=== PATIENT | male | born 1935 | race Caucasian/White ===

== ENCOUNTER 2018-09-27 16:23 | Emergency (ER) | payer MEDICARE ==
[~2018-09-27] VITALS: Ht 172.7 cm; Wt 78.0 kg
[~2018-09-27 16:23] MED LIST: ATEN50 PO; CEFP200 PO; CYCL10 PO; HYDACE5 PO; Keflex500 MG PO; LORA10 PO; Norco 5-325 Ta1 EACH PO; OXYC5 PO; RANI150 PO; SIMV10 PO; WARF2.5 PO; WARF5 PO
[2018-09-27 17:28] LABS: BASOPHILS ABSOLUTE AUTO 0.02 K/mm3 (0.00-0.23); BASOPHILS PERCENT AUTO 1 % (0-2); EOSINOPHILS ABSOLUTE AUTO 0.01 K/mm3 (0.00-0.68); EOSINOPHILS PERCENT AUTO 0 % (0-6); Hematocrit 43.6 % (37.0-53.0); Hemoglobin 14.1 g/dL (13.5-17.5); IMMATURE GRAN ABSOLUTE AUTO 0.01 K/mm3 (0.00-0.10); IMMATURE GRAN PERCENT AUTO 0 % (0-1); LYMPHOCYTES ABSOLUTE AUTO 0.62 K/mm3 (0.84-5.20); LYMPHOCYTES PERCENT AUTO 17 % (21-46); MONOCYTES ABSOLUTE AUTO 0.99 K/mm3 (0.16-1.47); MONOCYTES PERCENT AUTO 28 % (4-13); Mean Corpuscular HGB 30.1 pg (26.0-34.0); Mean Corpuscular HGB Conc 32.3 g/dL (31.5-36.5); Mean Corpuscular Volume 93 fL (80-100); Mean Platelet Volume 9.4 fL (9.1-12.4); NEUTROPHILS ABSOLUTE AUTO 1.92 K/mm3 (1.96-9.15); NEUTROPHILS PERCENT AUTO 54 % (41-73); Platelet Count 142 K/mm3 (150-400); RDW Standard Deviation 44.6 fL (35.1-46.3); Red Blood Cell Count 4.69 M/mm3 (4.30-5.90); White Blood Cell Count 3.57 K/mm3 (4.00-11.30)
[2018-09-27 17:35] LABS: International Normalized Ratio 1.68
[2018-09-27 17:55] LABS: Alanine Aminotransfer (ALT/SGP 27 U/L (12-78); Albumin, Blood 3.3 g/dL (3.4-5.0); Albumin/Globulin Ratio 0.8 (0.8-1.8); Alk Phos 85 U/L (50-136); Anion Gap 9 mmol/L (6-16); Aspartate Aminotrans (AST/SGOT 47 U/L (12-37); Bilirubin, Total 1.2 mg/dL (0.1-1.0); Blood Urea Nitrogen 17 mg/dL (8-24); Bun/Creatinine Ratio 22.2 (12.0-20.0); CO2, Blood 26 mmol/L (21-32); Calcium, Blood 8.8 mg/dL (8.5-10.1); Chloride, Blood 98 mmol/L (98-108); Creatinine, Blood 0.77 mg/dL (0.60-1.20); Glomerular Filtration Rate >60 (60-); Glucose, Blood 82 mg/dL (70-99); Potassium, Blood 3.8 mmol/L (3.5-5.5); Sodium, Blood 133 mmol/L (136-145); Total Protein, Blood 7.3 g/dL (6.4-8.2)
[2018-09-27 20:56] LABS: Source, Urine Clean Catch
[2018-09-27 21:00] LABS: Bilirubin, Urine Neg (Neg); Blood, Urine 1+ (Neg); Glucose Qualitative, Urine Neg (Neg); Ketones, Urine 1+ (Neg); Leukocyte Esterase, Urine 1+ (Neg); Nitrite, Urine Neg (Neg); Protein, Urine 1+ (Neg); Specific Gravity, Urine 1.025 (1.003-1.022); Urobilinogen, Urine NORM (Normal)
[2018-09-27 21:10] LABS: Appearance, Urine Clear (Clear); Color, Urine Yellow (P-Yellow)
[2018-09-27 21:11] LABS: Bacteria Not Seen /hpf; Red Blood Cells, Urine Rare /hpf (0-2); Squamous Epithelial Cells Not Seen /hpf (Few); White Blood Cells, Urine 0-2 /hpf (0-5)
[2018-09-27 22:04] LABS: Influenza B Negative (NEGATIVE)
[2018-09-27 22:27] LABS: Influenza A Positive (NEGATIVE)
== END 2018-09-27 23:13 | disposition home or self-care (01) ==
LOC: ER 16:23
PROVIDERS: Emergency Medicine
DX: J10.1 Influenza due to other identified influenza virus with other respiratory manifestations (principal); G93.40 Encephalopathy, unspecified; Z79.01 Long term (current) use of anticoagulants; Z79.899 Other long term (current) drug therapy; I10 Essential (primary) hypertension; I25.2 Old myocardial infarction; Z87.891 Personal history of nicotine dependence
CPT/HCPCS: 36415; 70450; 71046; 80053; 81001; 85025; 85610; 87086; 87804; 93005; 93010; 96360; 99284-25; J7030

== ENCOUNTER 2018-11-15 15:55 | Emergency (ER) | payer MEDICARE ==
[~2018-11-15] VITALS: Ht 180.3 cm; Wt 90.7 kg
[2018-11-15 16:45] LABS: BASOPHILS ABSOLUTE AUTO 0.04 K/mm3 (0.00-0.23); BASOPHILS PERCENT AUTO 1 % (0-2); EOSINOPHILS ABSOLUTE AUTO 0.23 K/mm3 (0.00-0.68); EOSINOPHILS PERCENT AUTO 5 % (0-6); Hematocrit 42.1 % (37.0-53.0); Hemoglobin 13.5 g/dL (13.5-17.5); IMMATURE GRAN ABSOLUTE AUTO 0.02 K/mm3 (0.00-0.10); IMMATURE GRAN PERCENT AUTO 1 % (0-1); LYMPHOCYTES ABSOLUTE AUTO 1.07 K/mm3 (0.84-5.20); LYMPHOCYTES PERCENT AUTO 24 % (21-46); MONOCYTES ABSOLUTE AUTO 0.43 K/mm3 (0.16-1.47); MONOCYTES PERCENT AUTO 10 % (4-13); Mean Corpuscular HGB 30.1 pg (26.0-34.0); Mean Corpuscular HGB Conc 32.1 g/dL (31.5-36.5); Mean Corpuscular Volume 94 fL (80-100); Mean Platelet Volume 9.4 fL (9.1-12.4); NEUTROPHILS ABSOLUTE AUTO 2.65 K/mm3 (1.96-9.15); NEUTROPHILS PERCENT AUTO 60 % (41-73); Platelet Count 157 K/mm3 (150-400); RDW Coefficient Variation 14.9 % (11.7-14.2); RDW Standard Deviation 51.3 fL (35.1-46.3); Red Blood Cell Count 4.49 M/mm3 (4.30-5.90); White Blood Cell Count 4.44 K/mm3 (4.00-11.30)
[2018-11-15 17:01] LABS: Prothrombin Time Results 39.9 Sec (9.7-11.5)
[2018-11-15 17:06] LABS: Alanine Aminotransfer (ALT/SGP 20 U/L (12-78); Albumin, Blood 3.2 g/dL (3.4-5.0); Albumin/Globulin Ratio 0.9 (0.8-1.8); Alk Phos 74 U/L (50-136); Anion Gap 4 mmol/L (6-16); Aspartate Aminotrans (AST/SGOT 24 U/L (12-37); Bilirubin, Total 0.7 mg/dL (0.1-1.0); Blood Urea Nitrogen 11 mg/dL (8-24); Bun/Creatinine Ratio 14.9 (12.0-20.0); CO2, Blood 27 mmol/L (21-32); Calcium, Blood 8.7 mg/dL (8.5-10.1); Chloride, Blood 110 mmol/L (98-108); Creatinine, Blood 0.74 mg/dL (0.60-1.20); Globulin, Blood 3.6 g/dL (2.2-4.0); Glomerular Filtration Rate >60 (60-); Glucose, Blood 90 mg/dL (70-99); Potassium, Blood 4.4 mmol/L (3.5-5.5); Sodium, Blood 141 mmol/L (136-145); Total Protein, Blood 6.8 g/dL (6.4-8.2)
[2018-11-15 17:07] LABS: International Normalized Ratio 4.3
== END 2018-11-15 19:43 | disposition home or self-care (01) ==
LOC: ER 15:55
PROVIDERS: Physician Assistant
DX: R79.1 Abnormal coagulation profile (principal); I25.2 Old myocardial infarction; I10 Essential (primary) hypertension; Z87.891 Personal history of nicotine dependence
CPT/HCPCS: 36415; 80053; 85025; 85610; 99283

== ENCOUNTER 2019-08-02 18:35 | Emergency (ER) | payer MEDICARE ==
[~2019-08-02] VITALS: Ht 177.8 cm; Wt 78.9 kg
[2019-08-02 19:01] LABS: BASOPHILS ABSOLUTE AUTO 0.04 K/mm3 (0.00-0.23); BASOPHILS PERCENT AUTO 1 % (0-2); EOSINOPHILS ABSOLUTE AUTO 0.32 K/mm3 (0.00-0.68); EOSINOPHILS PERCENT AUTO 7 % (0-6); Hematocrit 44.3 % (37.0-53.0); Hemoglobin 14.6 g/dL (13.5-17.5); IMMATURE GRAN ABSOLUTE AUTO 0.02 K/mm3 (0.00-0.10); IMMATURE GRAN PERCENT AUTO 0 % (0-1); LYMPHOCYTES ABSOLUTE AUTO 1.23 K/mm3 (0.84-5.20); LYMPHOCYTES PERCENT AUTO 26 % (21-46); MONOCYTES ABSOLUTE AUTO 0.56 K/mm3 (0.16-1.47); MONOCYTES PERCENT AUTO 12 % (4-13); Mean Corpuscular HGB 30.2 pg (26.0-34.0); Mean Corpuscular Volume 92 fL (80-100); Mean Platelet Volume 9.4 fL (9.1-12.4); NEUTROPHILS ABSOLUTE AUTO 2.56 K/mm3 (1.96-9.15); NEUTROPHILS PERCENT AUTO 54 % (41-73); Platelet Count 150 K/mm3 (150-400); RDW Coefficient Variation 13.2 % (11.7-14.2); RDW Standard Deviation 44.7 fL (35.1-46.3); Red Blood Cell Count 4.84 M/mm3 (4.30-5.90); White Blood Cell Count 4.73 K/mm3 (4.00-11.30)
[2019-08-02 19:18] LABS: Alanine Aminotransfer (ALT/SGP 22 U/L (12-78); Albumin, Blood 3.5 g/dL (3.4-5.0); Albumin/Globulin Ratio 1.1 (0.8-1.8); Alk Phos 66 U/L (50-136); Anion Gap 6 mmol/L (6-16); Aspartate Aminotrans (AST/SGOT 21 U/L (12-37); Bilirubin, Total 0.5 mg/dL (0.1-1.0); Blood Urea Nitrogen 14 mg/dL (8-24); Bun/Creatinine Ratio 17.4 (12.0-20.0); CO2, Blood 25 mmol/L (21-32); Calcium, Blood 8.8 mg/dL (8.5-10.1); Chloride, Blood 105 mmol/L (98-108); Globulin, Blood 3.3 g/dL (2.2-4.0); Glomerular Filtration Rate >60 (60-); Glucose, Blood 120 mg/dL (70-99); Potassium, Blood 4.1 mmol/L (3.5-5.5); Sodium, Blood 136 mmol/L (136-145); Total Protein, Blood 6.8 g/dL (6.4-8.2); Troponin I <0.015 ng/mL (0.000-0.040)
[2019-08-02 21:50] LABS: International Normalized Ratio 2.26; Prothrombin Time Results 23.1 Sec (9.7-11.5)
== END 2019-08-02 23:55 | disposition home or self-care (01) ==
LOC: ER 18:35
PROVIDERS: Emergency Medicine; Physician Assistant
DX: R07.9 Chest pain, unspecified (principal); R91.1 Solitary pulmonary nodule; D68.2 Hereditary deficiency of other clotting factors; I10 Essential (primary) hypertension; I25.2 Old myocardial infarction; Z86.711 Personal history of pulmonary embolism; Z79.01 Long term (current) use of anticoagulants; Z79.899 Other long term (current) drug therapy; Z87.891 Personal history of nicotine dependence
CPT/HCPCS: 36415; 71046; 71260; 80053; 84484; 85025; 85610; 85730; 93005; 93010; 99285-25; Q9967

== ENCOUNTER → 2020-01-02 | Outpatient (CLI) | payer MEDICARE | LOC: LAB SHORT 15:51 → LAB 15:51 | DX: R30.0 Dysuria (principal) | CPT/HCPCS: 87086 ==

== ENCOUNTER 2020-08-15 17:08 | Emergency (ER) | payer MEDICARE ==
[~2020-08-15] VITALS: Ht 177.8 cm; Wt 76.2 kg
[2020-08-15 18:25] LABS: BASOPHILS ABSOLUTE AUTO 0.06 K/mm3 (0.00-0.23); BASOPHILS PERCENT AUTO 1 % (0-2); EOSINOPHILS ABSOLUTE AUTO 0.35 K/mm3 (0.00-0.68); EOSINOPHILS PERCENT AUTO 5 % (0-6); Hemoglobin 13.7 g/dL (13.5-17.5); IMMATURE GRAN ABSOLUTE AUTO 0.02 K/mm3 (0.00-0.10); IMMATURE GRAN PERCENT AUTO 0 % (0-1); LYMPHOCYTES ABSOLUTE AUTO 1.04 K/mm3 (0.84-5.20); LYMPHOCYTES PERCENT AUTO 16 % (21-46); MONOCYTES ABSOLUTE AUTO 0.67 K/mm3 (0.16-1.47); MONOCYTES PERCENT AUTO 10 % (4-13); Mean Corpuscular HGB 29.5 pg (26.0-34.0); Mean Corpuscular HGB Conc 31.9 g/dL (31.5-36.5); Mean Corpuscular Volume 93 fL (80-100); Mean Platelet Volume 9.5 fL (9.1-12.4); NEUTROPHILS ABSOLUTE AUTO 4.32 K/mm3 (1.96-9.15); NEUTROPHILS PERCENT AUTO 67 % (41-73); Platelet Count 138 K/mm3 (150-400); RDW Coefficient Variation 13.8 % (11.7-14.2); RDW Standard Deviation 47.1 fL (35.1-46.3); Red Blood Cell Count 4.65 M/mm3 (4.30-5.90); White Blood Cell Count 6.46 K/mm3 (4.00-11.30)
[2020-08-15 18:37] LABS: International Normalized Ratio 2.25
[2020-08-15 18:38] LABS: Alanine Aminotransfer (ALT/SGP 18 U/L (12-78); Albumin/Globulin Ratio 0.9 (0.8-1.8); Alk Phos 83 U/L (50-136); Anion Gap 2 mmol/L (6-16); Aspartate Aminotrans (AST/SGOT 18 U/L (12-37); Blood Urea Nitrogen 15 mg/dL (8-24); Bun/Creatinine Ratio 21.6 (12.0-20.0); CO2, Blood 29 mmol/L (21-32); Calcium, Blood 8.7 mg/dL (8.5-10.1); Chloride, Blood 108 mmol/L (98-108); Creatinine, Blood 0.69 mg/dL (0.60-1.20); Globulin, Blood 3.4 g/dL (2.2-4.0); Glomerular Filtration Rate >60 (60-); Glucose, Blood 69 mg/dL (70-99); Potassium, Blood 4.4 mmol/L (3.5-5.5); Sodium, Blood 139 mmol/L (136-145); Total Protein, Blood 6.4 g/dL (6.4-8.2)
== END 2020-08-15 19:54 | disposition home or self-care (01) ==
LOC: ER 17:08
PROVIDERS: Physician Assistant
DX: S40.012A Contusion of left shoulder, initial encounter (principal); S60.212A Contusion of left wrist, initial encounter; I25.2 Old myocardial infarction; I10 Essential (primary) hypertension; Z79.01 Long term (current) use of anticoagulants; Z87.891 Personal history of nicotine dependence; W01.198A Fall on same level from slipping, tripping and stumbling with subsequent striking against other object, initial encounter
CPT/HCPCS: 36415; 70450; 73030; 73110; 80053; 85025; 85610; 85730; 99284-25

== ENCOUNTER 2021-03-19 17:13 | Emergency (ER) | payer MEDICARE ==
[~2021-03-19] VITALS: Ht 177.8 cm; Wt 78.0 kg
[2021-03-19 18:44] LABS: BASOPHILS ABSOLUTE AUTO 0.01 K/mm3 (0.00-0.23); BASOPHILS PERCENT AUTO 0 % (0-2); EOSINOPHILS ABSOLUTE AUTO 0.03 K/mm3 (0.00-0.68); EOSINOPHILS PERCENT AUTO 1 % (0-6); IMMATURE GRAN ABSOLUTE AUTO 0.02 K/mm3 (0.00-0.10); IMMATURE GRAN PERCENT AUTO 0 % (0-1); LYMPHOCYTES ABSOLUTE AUTO 0.64 K/mm3 (0.84-5.20); LYMPHOCYTES PERCENT AUTO 11 % (21-46); MONOCYTES ABSOLUTE AUTO 0.53 K/mm3 (0.16-1.47); MONOCYTES PERCENT AUTO 9 % (4-13); Mean Corpuscular HGB 30.1 pg (26.0-34.0); Mean Corpuscular HGB Conc 34.1 g/dL (31.5-36.5); Mean Corpuscular Volume 88 fL (80-100); Mean Platelet Volume 9.8 fL (9.1-12.4); NEUTROPHILS ABSOLUTE AUTO 4.52 K/mm3 (1.96-9.15); NEUTROPHILS PERCENT AUTO 79 % (41-73); Platelet Count 151 K/mm3 (150-400); RDW Coefficient Variation 13.5 % (11.7-14.2); Red Blood Cell Count 4.99 M/mm3 (4.30-5.90); White Blood Cell Count 5.75 K/mm3 (4.00-11.30)
[2021-03-19 19:10] LABS: Alanine Aminotransfer (ALT/SGP 83 U/L (12-78); Albumin/Globulin Ratio 0.8 (0.8-1.8); Alk Phos 110 U/L (50-136); Anion Gap 9 mmol/L (6-16); Aspartate Aminotrans (AST/SGOT 126 U/L (12-37); Bilirubin, Total 1.4 mg/dL (0.1-1.0); Blood Urea Nitrogen 13 mg/dL (8-24); Bun/Creatinine Ratio 19.1 (12.0-20.0); CO2, Blood 23 mmol/L (21-32); Calcium, Blood 8.5 mg/dL (8.5-10.1); Chloride, Blood 103 mmol/L (98-108); Creatinine, Blood 0.68 mg/dL (0.60-1.20); Globulin, Blood 3.8 g/dL (2.2-4.0); Glomerular Filtration Rate >60 (60-); Glucose, Blood 131 mg/dL (70-99); Prothrombin Time Results 66.2 Sec (9.7-11.5); Sodium, Blood 135 mmol/L (136-145); Total Protein, Blood 6.8 g/dL (6.4-8.2); Troponin I <0.015 ng/mL (0.000-0.040)
[2021-03-19 19:15] LABS: International Normalized Ratio 6.83
== END 2021-03-19 21:01 | disposition home or self-care (01) ==
LOC: ER 17:13
PROVIDERS: Physician Assistant
DX: I82.532 Chronic embolism and thrombosis of left popliteal vein (principal); I82.513 Chronic embolism and thrombosis of femoral vein, bilateral; U07.1 COVID-19; I10 Essential (primary) hypertension; I25.2 Old myocardial infarction; Z79.899 Other long term (current) drug therapy; Z79.01 Long term (current) use of anticoagulants; Z86.711 Personal history of pulmonary embolism; Z87.891 Personal history of nicotine dependence
CPT/HCPCS: 36415; 71045; 80053; 84484; 85025; 85610; 93005; 93010; 93970; 99284-25

== ENCOUNTER 2021-04-15 18:05 | Emergency (ER) | payer MEDICARE ==
[~2021-04-15] VITALS: Ht 172.7 cm; Wt 79.4 kg
[2021-04-15 18:48] LABS: BASOPHILS ABSOLUTE AUTO 0.04 K/mm3 (0.00-0.23); BASOPHILS PERCENT AUTO 1 % (0-2); EOSINOPHILS ABSOLUTE AUTO 0.21 K/mm3 (0.00-0.68); EOSINOPHILS PERCENT AUTO 4 % (0-6); Hematocrit 42.9 % (37.0-53.0); Hemoglobin 13.5 g/dL (13.5-17.5); IMMATURE GRAN ABSOLUTE AUTO 0.03 K/mm3 (0.00-0.10); IMMATURE GRAN PERCENT AUTO 1 % (0-1); LYMPHOCYTES ABSOLUTE AUTO 1.08 K/mm3 (0.84-5.20); LYMPHOCYTES PERCENT AUTO 18 % (21-46); MONOCYTES PERCENT AUTO 10 % (4-13); Mean Corpuscular HGB 29.3 pg (26.0-34.0); Mean Corpuscular HGB Conc 31.5 g/dL (31.5-36.5); Mean Corpuscular Volume 93 fL (80-100); Mean Platelet Volume 8.9 fL (9.1-12.4); NEUTROPHILS ABSOLUTE AUTO 3.91 K/mm3 (1.96-9.15); NEUTROPHILS PERCENT AUTO 67 % (41-73); Platelet Count 195 K/mm3 (150-400); RDW Coefficient Variation 15.3 % (11.7-14.2); RDW Standard Deviation 51.9 fL (35.1-46.3); White Blood Cell Count 5.87 K/mm3 (4.00-11.30)
[2021-04-15 19:14] LABS: Alanine Aminotransfer (ALT/SGP 20 U/L (12-78); Albumin, Blood 2.8 g/dL (3.4-5.0); Albumin/Globulin Ratio 0.7 (0.8-1.8); Alk Phos 81 U/L (50-136); Anion Gap 5 mmol/L (6-16); Aspartate Aminotrans (AST/SGOT 29 U/L (12-37); Blood Urea Nitrogen 12 mg/dL (8-24); Bun/Creatinine Ratio 15.4 (12.0-20.0); CO2, Blood 27 mmol/L (21-32); Calcium, Blood 9.1 mg/dL (8.5-10.1); Chloride, Blood 109 mmol/L (98-108); Creatinine, Blood 0.78 mg/dL (0.60-1.20); Ethanol (Alcohol), Blood, Med <3 mg/dL; Globulin, Blood 4.2 g/dL (2.2-4.0); Glomerular Filtration Rate >60 (60-); Glucose, Blood 116 mg/dL (70-99); Potassium, Blood 4.2 mmol/L (3.5-5.5); Salicylate <1.7 mg/dL (2.8-20.0); Sodium, Blood 141 mmol/L (136-145)
[2021-04-15] MEDS ORDERED: NEURONTIN300 MG PO (20:26)
[2021-04-15] MEDS ORDERED: JANTOVEN3 M2 PO (20:27)
[2021-04-15 20:52] LABS: Source, Urine Clean Catch
[2021-04-15 20:54] LABS: Appearance, Urine Clear (Clear); Bilirubin, Urine Neg (Neg); Blood, Urine 1+ (Neg); Color, Urine Yellow (P-Yellow); Glucose Qualitative, Urine Neg (Neg); Ketones, Urine Neg (Neg); Leukocyte Esterase, Urine 1+ (Neg); Nitrite, Urine Neg (Neg); Protein, Urine Neg (Neg); Urobilinogen, Urine NORM (Normal)
[2021-04-15 21:09] LABS: Bacteria Not Seen /hpf; Red Blood Cells, Urine 0-2 /hpf (0-2); Squamous Epithelial Cells Rare /hpf (Few); White Blood Cells, Urine 0-2 /hpf (0-5)
[2021-04-15 21:20] LABS: U Amphetamine Screen Not Detected; U Barbituate Screen Not Detected; U Benzodiazapine Screen Not Detected; U Buprenorphine Screen Not Detected; U Cannabinoids Screen Not Detected; U Cocaine Screen Not Detected; U Methadone Screen Not Detected; U Methamphetamine Screen Not Detected; U Opiates Screen Not Detected; U Oxycodone Screen Not Detected; U Phencyclidine Screen Not Detected; U Propoxyphene Screen Not Detected
[2021-04-15 21:25] LABS: International Normalized Ratio 3.39; Prothrombin Time Results 32.9 Sec (9.7-11.5)
== END 2021-04-15 22:13 | disposition home or self-care (01) ==
LOC: ER 18:05
PROVIDERS: Emergency Medicine; Physician Assistant
DX: R41.82 Altered mental status, unspecified (principal); I10 Essential (primary) hypertension; I25.2 Old myocardial infarction; Z79.01 Long term (current) use of anticoagulants; Z79.899 Other long term (current) drug therapy; Z86.711 Personal history of pulmonary embolism; Z87.891 Personal history of nicotine dependence
CPT/HCPCS: 36415; 70450; 80053; 81001; 85025; 85610; 93005; 93010; 99284-25; G0480

== ENCOUNTER 2021-04-16 17:13 | Emergency (ER) | payer MEDICARE ==
[~2021-04-16] VITALS: Ht 177.8 cm; Wt 81.7 kg
[~2021-04-16 17:13] MED LIST changes: +JANTOVEN3 M2 PO; +NEURONTIN300 MG PO
== END 2021-04-16 19:15 | disposition home or self-care (01) ==
LOC: ER 17:13
DX: Z00.8 Encounter for other general examination (principal); I10 Essential (primary) hypertension; I25.2 Old myocardial infarction; Z79.899 Other long term (current) drug therapy; Z79.01 Long term (current) use of anticoagulants; Z86.711 Personal history of pulmonary embolism; Z87.891 Personal history of nicotine dependence
CPT/HCPCS: 99284

== ENCOUNTER 2021-07-28 18:28 | Emergency (ER) | payer OTHER, MEDICARE ==
[~2021-07-28] VITALS: Ht 172.7 cm; Wt 78.0 kg
== END 2021-07-28 20:34 | disposition home or self-care (01) ==
LOC: ER 18:28
DX: S61.511A Laceration without foreign body of right wrist, initial encounter (principal); M25.561 Pain in right knee; I25.2 Old myocardial infarction; I10 Essential (primary) hypertension; Z79.01 Long term (current) use of anticoagulants; W22.8XXA Striking against or struck by other objects, initial encounter
CPT/HCPCS: 99282

== ENCOUNTER 2022-03-09 05:26 | Emergency (ER) | payer MEDICARE ==
[~2022-03-09] VITALS: Ht 177.8 cm; Wt 68.0 kg
[2022-03-09 07:32] LABS: BASOPHILS ABSOLUTE AUTO 0.02 K/mm3 (0.00-0.23); BASOPHILS PERCENT AUTO 0 % (0-2); EOSINOPHILS ABSOLUTE AUTO 0.32 K/mm3 (0.00-0.68); EOSINOPHILS PERCENT AUTO 7 % (0-6); Hematocrit 40.6 % (37.0-53.0); Hemoglobin 13.1 g/dL (13.5-17.5); IMMATURE GRAN ABSOLUTE AUTO 0.01 K/mm3 (0.00-0.10); IMMATURE GRAN PERCENT AUTO 0 % (0-1); LYMPHOCYTES ABSOLUTE AUTO 1.25 K/mm3 (0.84-5.20); LYMPHOCYTES PERCENT AUTO 28 % (21-46); MONOCYTES ABSOLUTE AUTO 0.54 K/mm3 (0.16-1.47); MONOCYTES PERCENT AUTO 12 % (4-13); Mean Corpuscular HGB 29.4 pg (26.0-34.0); Mean Corpuscular HGB Conc 32.3 g/dL (31.5-36.5); Mean Corpuscular Volume 91 fL (80-100); Mean Platelet Volume 9.3 fL (9.1-12.4); NEUTROPHILS ABSOLUTE AUTO 2.31 K/mm3 (1.96-9.15); NEUTROPHILS PERCENT AUTO 52 % (41-73); Platelet Count 137 K/mm3 (150-400); RDW Coefficient Variation 14.1 % (11.7-14.2); RDW Standard Deviation 47.5 fL (35.1-46.3); Red Blood Cell Count 4.45 M/mm3 (4.30-5.90); White Blood Cell Count 4.45 K/mm3 (4.00-11.30)
[2022-03-09 07:40] LABS: International Normalized Ratio 2.16; Prothrombin Time Results 21.6 Sec (9.7-11.5)
[2022-03-09 07:49] LABS: Albumin, Blood 2.9 g/dL (3.4-5.0); Albumin/Globulin Ratio 0.9 (0.8-1.8); Bilirubin, Total 0.5 mg/dL (0.1-1.0); Bun/Creatinine Ratio 19.5 (12.0-20.0); Calcium, Blood 8.7 mg/dL (8.5-10.1); Creatinine, Blood 0.82 mg/dL (0.60-1.20); Globulin, Blood 3.1 g/dL (2.2-4.0); Potassium, Blood 4.4 mmol/L (3.5-5.5)
[2022-03-09 08:51] LABS: Influenza A, PCR NEGATIVE (NEGATIVE); Influenza B, PCR NEGATIVE (NEGATIVE); Resp Syncytial Virus, PCR NEGATIVE (NEGATIVE); SARS-Cov-2 (COVID-19) PCR, MMC NEGATIVE (NEGATIVE)
== END 2022-03-09 08:45 ==
LOC: ER 05:26
PROVIDERS: Emergency Medicine
DX: S06.5X0A Traumatic subdural hemorrhage without loss of consciousness, initial encounter (principal); W06.XXXA Fall from bed, initial encounter; W20.8XXA Other cause of strike by thrown, projected or falling object, initial encounter; Z79.01 Long term (current) use of anticoagulants; Z20.822 Contact with and (suspected) exposure to COVID-19
CPT/HCPCS: 0241U; 36415; 70450; 80053; 85025; 85610; J3430; J7168

== ENCOUNTER 2022-06-13 15:55 | Inpatient (IN) | payer MEDICARE ==
[~2022-06-13] VITALS: Ht 177.8 cm; Wt 73.2 kg
[2022-06-13 17:14] LABS: BASOPHILS ABSOLUTE AUTO 0.03 K/mm3 (0.00-0.23); BASOPHILS PERCENT AUTO 1 % (0-2); EOSINOPHILS ABSOLUTE AUTO 0.08 K/mm3 (0.00-0.68); EOSINOPHILS PERCENT AUTO 1 % (0-6); Hematocrit 27.9 % (37.0-53.0); Hemoglobin 8.9 g/dL (13.5-17.5); IMMATURE GRAN ABSOLUTE AUTO 0.03 K/mm3 (0.00-0.10); IMMATURE GRAN PERCENT AUTO 1 % (0-1); LYMPHOCYTES ABSOLUTE AUTO 0.98 K/mm3 (0.84-5.20); LYMPHOCYTES PERCENT AUTO 17 % (21-46); MONOCYTES ABSOLUTE AUTO 0.47 K/mm3 (0.16-1.47); MONOCYTES PERCENT AUTO 8 % (4-13); Mean Corpuscular HGB 29.9 pg (26.0-34.0); Mean Corpuscular HGB Conc 31.9 g/dL (31.5-36.5); Mean Corpuscular Volume 94 fL (80-100); Mean Platelet Volume 9.1 fL (9.1-12.4); NEUTROPHILS ABSOLUTE AUTO 4.09 K/mm3 (1.96-9.15); NEUTROPHILS PERCENT AUTO 72 % (41-73); Platelet Count 305 K/mm3 (150-400); RDW Coefficient Variation 15.2 % (11.7-14.2); RDW Standard Deviation 50.4 fL (35.1-46.3); Red Blood Cell Count 2.98 M/mm3 (4.30-5.90); White Blood Cell Count 5.68 K/mm3 (4.00-11.30)
[2022-06-13 17:30] LABS: Albumin, Blood 2.7 g/dL (3.4-5.0); Albumin/Globulin Ratio 0.8 (0.8-1.8); Bilirubin, Total 0.6 mg/dL (0.1-1.0); Bun/Creatinine Ratio 22.5 (12.0-20.0); Calcium, Blood 8.4 mg/dL (8.5-10.1); Creatinine, Blood 0.71 mg/dL (0.60-1.20); Globulin, Blood 3.3 g/dL (2.2-4.0); Potassium, Blood 4.2 mmol/L (3.5-5.5)
[2022-06-13 17:40] LABS: Source, Urine Clean Catch
[2022-06-13 17:46] LABS: Bilirubin, Urine Neg (Neg); Blood, Urine 5+ (Neg); Glucose Qualitative, Urine Neg (Neg); Ketones, Urine 1+ (Neg); Nitrite, Urine Neg (Neg); Protein, Urine 4+ (Neg)
[2022-06-13 17:52] LABS: International Normalized Ratio 7.5
[2022-06-13 17:58] LABS: Appearance, Urine Cloudy (Clear); Color, Urine Brown (P-Yellow); Leukocyte Esterase, Urine 1+ (Neg); Urobilinogen, Urine 1+ (Normal)
[2022-06-13 18:03] LABS: Red Blood Cells, Urine TNTC /hpf (0-2)
[2022-06-13 18:06] LABS: Bacteria Few /hpf; Granular Casts 0-2 /lpf (0); Hyaline Casts 0-2 /lpf (0-2); Squamous Epithelial Cells Rare /hpf (Few)
[2022-06-13 19:25] LABS: Source, Urine Foley catheter
[2022-06-13 19:30] LABS: Bilirubin, Urine Neg (Neg); Blood, Urine 5+ (Neg); Glucose Qualitative, Urine Neg (Neg); Ketones, Urine 1+ (Neg); Leukocyte Esterase, Urine 1+ (Neg); Protein, Urine 4+ (Neg)
[2022-06-13 19:38] LABS: Appearance, Urine Cloudy (Clear); Color, Urine Brown (P-Yellow); Nitrite, Urine Pos (Neg); Urobilinogen, Urine 1+ (Normal)
[2022-06-13 19:48] LABS: Bacteria Many /hpf; Red Blood Cells, Urine TNTC /hpf (0-2); Renal Epithelial Few /hpf (0-Rare); Squamous Epithelial Cells Few /hpf (Few); White Blood Cells, Urine 0-2 /hpf (0-5)
[2022-06-13 22:27] LABS: Hematocrit 26.1 % (37.0-53.0); Hemoglobin 8.5 g/dL (13.5-17.5)
--- NOTE | 2022-06-13 22:34 | NUR ---
ADMIT NOTE 87 YR OLD MALE ADMITTED TO FLOOR FROM THE ED WITH DX OF ACUTE BLOOD LOSS ANEMIA. ED RN VOICED HAD BLADDER IRRIGATED HIM AND ALTHOUGH RETURNS WERE "A LOT OF BLOOD, BUT NO CLOTS" NOTED. HERNANDEZ IN PT WHEN HE CAME TO FLOOR. NOTE HEMATURIA. ALERT AND ORIENTED. CALL LIGHT IN REACH. RAILS UP X 3.
[2022-06-13] MEDS ORDERED: PEPCID40 MG PO (22:58)
[2022-06-13] MEDS ORDERED: BEVESPI AEROS10.7 G1 INH (22:59)
[2022-06-13] MEDS ORDERED: Ventolin/Prove6.7 GM INH (22:59)
[2022-06-13] MEDS ORDERED: Namenda5 MG PO (23:00)
[2022-06-13] MEDS ORDERED: OXYC5 PO (23:00)
[2022-06-13] MEDS ORDERED: QUETIAPINE FUMA25 MG PO (23:01)
--- NOTE | 2022-06-14 03:44 | NUR ---
FACULTY ADMINISTRATOR SUMMARY ADMITTED EARLIER IN THE SHIFT WITH DX OF ACUTE BLOOD LOSS ANEMIA AND HEMATURIA. ED REPORTED HAVING BLADDER IRRIGATED HIM BUT FOUND NO CLOTS. HERNANDEZ DRAINING HEMATURIA. MD ORDERED 2 UNITS OF FROZEN PLASMA. ONE UNIT HAS BEEN INFUSED, AND SECOND UNIT IS CURRENTLY INFUSING. VOICED HE FELT "BETTER", SMILING. HANDS WARMER TO TOUCH. VITAL SIGNS STABILIZING. LATEST VS: T 98.4, P 75, RESP 16, BP 109/71 AND O2 SATS 93% ON ROOM AIR. CALLED EARLIER AND NOTIFIED OF PT CONDITION AND OF RECEIVING PLASMA. SHE VOICED SHE WOULD COME IN IN THE MORNING. PT ORIENTED TO USE OF CALL LIGHT. CALL LIGHT IN REACH. RAILS UP X 3 FOR SAFETY. WILL CONTINUE TO MONITOR.
--- NOTE | 2022-06-14 04:16 | NUR ---
2 UNITS OF PLASMA INFUSED ORDERED, NO NOTED S/S ADVERSE REACTION. VSS. SMILING. CALL LIGHT IN REACH
[2022-06-14 05:13] LABS: Hematocrit 21.8 % (37.0-53.0); Hemoglobin 6.9 g/dL (13.5-17.5)
[2022-06-14 05:43] LABS: Albumin, Blood 2.5 g/dL (3.4-5.0); Albumin/Globulin Ratio 0.8 (0.8-1.8); Bilirubin, Total 0.6 mg/dL (0.1-1.0); Bun/Creatinine Ratio 24.7 (12.0-20.0); Calcium, Blood 8.1 mg/dL (8.5-10.1); Creatinine, Blood 0.73 mg/dL (0.60-1.20); Potassium, Blood 3.9 mmol/L (3.5-5.5); Total Protein, Blood 5.5 g/dL (6.4-8.2)
[2022-06-14 08:33] LABS: Hematocrit 23.7 % (37.0-53.0); Hemoglobin 7.7 g/dL (13.5-17.5)
--- NOTE | 2022-06-14 17:24 | NUR ---
DAYSHIFT SUMMARY Patient admitted for acute blood loss, hematuria noted in stover catheter bag. H/H MD leydi order 1 unit PRBCs to be transfused. Transfued blood, no s/sx of transfusion reaction observed. Vitals stable. Patient AOx2, at bedside to answer questions. H/H will be redrawn this evening. Will continue plan of care.
[2022-06-14 17:56] LABS: Hematocrit 24.9 % (37.0-53.0); Hemoglobin 8.1 g/dL (13.5-17.5)
--- NOTE | 2022-06-14 20:30 | NUR ---
PATIENT PRESENTS WITH A DIAGNOSIS OF A UTI. A&OX4 WITH TANGENTIAL SPEECH. PATIENT EFFECTIVELY COMMUNICATES NEEDS. CALL LIGHT WITHIN REACH. BED LOW AND LOCKED. COOPERATIVE WITH CARE AND PLEASANTLY INTERACTIVE WITH CARE STAFF. VSS. RR EVEN AND UNLABORED ON RA. APAP ADMINISTERED PER EMAR FOR A REPORTED HEADACHE AND DIFFUSE BACK PAIN. PATIENT CURRENTLY UP IN BEDSIDE CHAIR. PER DAYSHIFT REPORT, URINE REMAINS DOMINGA-COLORED IN CHARACTER. PATIENT ENCOURAGED TO DRINK H2O AND IS RESPONSIVE TO THIS. IV TO RIGHT WRIST IS PATENT AND WITHOUT SIGNS OF INFECTION. NO ACUTE CONCERNS AT THIS TIME. WILL CONTINUE TO CLOSELY MONITOR.
--- NOTE | 2022-06-14 20:40 | NUR ---
PATIENT PRESENTS WITH DIAGNOSIS OF HEMATUIRA. A&O TO SELF AND FAMILY. PATIENT EFFECITVELY COMMUNICATES NEEDS. CALL LIGHT WITHIN REACH. BED LOW AND LOCKED. VSS. RR EVEN AND UNLABORED ON RA. 1 UNIT OF BLOOD ADMINISTERED BY DAYSKAVITHA RN. IV TO LEFT FOREARM PATENT AND WITHOUT SIGNS OF INFECTION. HERNANDEZ CATHETER DRAINING BLOODY URINE. NO CLOTS NOTED. WILL CONTINUE TO CLOSELY MONITOR.
--- NOTE | 2022-06-15 03:46 | NUR ---
SHIFT SUMMARY THE PATIENT IS AN 87 YEAR-OLD MALE WITH A DIAGNOSIS OF GROSS HEMATURIA AND ACUTE BLOOD LOSS ANEMIA. A&O TO SELF ONLY. EFFECTIVELY COMMUNICATES NEEDS WITH ASSISTANCE. INCREASED ROUNDING RELATED TO INABILITY TO APPROPRIATELY UTILIZE CALL LIGHT. BED LOW AND LOCKED. CHAD VEST IN PLACE DUE TO MULTIPLE ATTEMPTS TO GET OUT OF BED WITHOUT ASSISTNACE. VSS. RR EVEN AND UNLABORED ON RA. PATIENT DENIES PAIN. HERNANDEZ CATHETER CONTINUES TO DRAIN HEMATURIA. NO ACUTE CHANGES THIS SHIFT. WILL CONTINUE TO CLOSELY MONITOR.
[2022-06-15 05:58] LABS: Hematocrit 26.5 % (37.0-53.0); Hemoglobin 8.4 g/dL (13.5-17.5); Mean Corpuscular HGB 29.3 pg (26.0-34.0); Mean Corpuscular HGB Conc 31.7 g/dL (31.5-36.5); Mean Corpuscular Volume 92 fL (80-100); Mean Platelet Volume 9.5 fL (9.1-12.4); Platelet Count 227 K/mm3 (150-400); RDW Coefficient Variation 17.1 % (11.7-14.2); RDW Standard Deviation 56.1 fL (35.1-46.3); Red Blood Cell Count 2.87 M/mm3 (4.30-5.90)
[2022-06-15 13:39] LABS: Hematocrit 29.9 % (37.0-53.0); Hemoglobin 9.4 g/dL (13.5-17.5)
[2022-06-15 13:43] LABS: Stool Occult Blood Guaiac 1 Pos (Neg)
--- NOTE | 2022-06-15 17:50 | NUR ---
SHIFT SUMMARY PLAN WAS TO D/C TODAY, BUT BLOOD NOTED IN STOOL AND GUAIAC AND H&H ORDERED. PTN WITH CHAD AT 0031 THIS AM FOR AGITATION, BUT D/C'D AT 1020 THERE HAD BEEN NO ISSUES. PTN RESTED QUIETLY, AND HAS BEEN BY HIS SIDE MOST OF THIS SHIFT WITH NO PROBLEMS. PTN IS SOMEWHAT CONFUSED, KNOWS AND BIRTHDAY, BUT NOT REAL SURE WHERE HE IS. DOES STATE THAT PTN TENDS TO GET CONFUSED AND MORE AGITATED IN THE EVENINGS, STATING THAT HE HAS "THE OWNERS." PTN HERNANDEZ DRAINING A RED-COLORED URINE TO GRAVITY. STOOL EARLIER THIS SHIFT WAS A DARK COFFEE-GROUND CONSISTENCY AND RUNNY WITH ODOR. CONTINUE TO MONITOR.
--- NOTE | 2022-06-15 19:50 | NUR ---
THE PATIENT IS AN 87 YEAR-OLD MALE WITH A DIAGNOSIS OF GROSS HEMATURIA AND ACUTE BLOOD LOSS ANEMIA. PATIENT STAY EXTENDED FOR ANOTHER NIGHT SECONDARY TO POSITIVE GUAIAC TEST AND CONTINUED HEMATURIA. A&OX TO SELF AND FAMILY. PATIENT EFFECITVELY COMMUNICATES NEEDS. INCREASED ROUNDING PERFORMED DUE TO INABILITY TO APPROPRIATELY USE CALL LIGHT. PATIENT FAMILY CURRENTLY AT BEDSIDE. PATIENT DENIES PAIN. VSS. HERNANDEZ CATHETER DRAINING HEMATURIA. NO ACUTE CONCERNS AT THIS TIME. BED LOW AND LOCKED. CALL LIGHT WITHIN REACH. WILL CONTINUE TO CLOSELY MONITOR.
[2022-06-15 20:11] LABS: Hematocrit 26.1 % (37.0-53.0); Hemoglobin 8.4 g/dL (13.5-17.5)
--- NOTE | 2022-06-16 03:14 | NUR ---
JAVA DEVELOPMENT MANAGER SUMMARY THE PATIENT IS AN 87 YEAR-OLD MALE WITH A DIAGNOSIS OF GROSS HEMATURIA AND ACUTE BLOOD LOSS ANEMIA. A&O TO SELF, PHYSICAL SURROUNDINGS, FAMILY, AND VAUGLY TO SITUATION. UNABLE TO STATE [place] AND/OR STATE. PATIENT EFFECTIVELY COMMUNICATES NEEDS. INCREASED ROUNDING PERFORMED DUE TO INABILITY TO APPROPRIATELY UTILIZE CALL LIGHT. PATIENT HAS DEMONSTRATED INTERMITTENT EPISODES OF RESTLESSNESS BUT IS REDIRECTABLE. HERNANDEZ CATHETER IS DRAINING HEMATURIA. POSITIVE GUAIAC TEST ON 06/15. VSS. IV TO LEFT FOREARM IS SALINE LOCKED. NO ACUTE CHANGES THIS SHIFT. WILL CONTINUE TO CLOSELY MONITOR.
[2022-06-16 05:55] LABS: Hematocrit 26.6 % (37.0-53.0); Hemoglobin 8.6 g/dL (13.5-17.5); Mean Corpuscular HGB 29.5 pg (26.0-34.0); Mean Corpuscular HGB Conc 32.3 g/dL (31.5-36.5); Mean Corpuscular Volume 91 fL (80-100); Mean Platelet Volume 9.6 fL (9.1-12.4); Platelet Count 231 K/mm3 (150-400); RDW Coefficient Variation 16.8 % (11.7-14.2); RDW Standard Deviation 53.7 fL (35.1-46.3); Red Blood Cell Count 2.92 M/mm3 (4.30-5.90); White Blood Cell Count 5.42 K/mm3 (4.00-11.30)
[2022-06-16 06:19] LABS: Bun/Creatinine Ratio 17.1 (12.0-20.0); Calcium, Blood 8.4 mg/dL (8.5-10.1); Creatinine, Blood 0.82 mg/dL (0.60-1.20); Potassium, Blood 3.9 mmol/L (3.5-5.5)
[2022-06-16] MEDS ORDERED: OMEP20ER PO (11:40)
--- NOTE | 2022-06-16 13:19 | NUR ---
SHIFT SUMMARY PTN SEEN BY DR DUBOSE THIS AM, ORDERS FOR D/C. URINE CLEARED AND IS YELLOW CLEAR TODAY, TO D/C HOME WITH HERNANDEZ, TO FOLLOW-UP WITH UROLOGY. PTN WITH SOME CONFUSION, BUT SEEMED BETTER TODAY. FAMILY REPORT THIS IS ONGOING, THAT SOME DAYS HE IS BETTER AND SOME DAYS WORSE. PTN OFF WARFARIN, AWAITING DIRECTION FROM PRIMARY CARE. APPT HAS BEEN MADE FOR TOMORROW WITH PRIMARY CARE. AND DAUGHTER PRESENT FOR MOST OF STAY AND HERE TODAY FOR D/C. PTN TRANSPORTED BY BY [facility] TO EXIT.
== END 2022-06-16 13:14 | disposition home or self-care (01) | DRG 812 ==
LOC: ER 15:55 → MEDS 15:56 → ENPENDDIS 06-15 14:33 → MEDS 06-16 13:14
PROVIDERS: Emergency Medicine; Family Medicine; Internal Medicine; Physician Assistant; ADMIT Internal Medicine
PROC: 30233L1 Transfusion of Nonautologous Fresh Plasma into Peripheral Vein, Percutaneous Approach (ICD-10-PCS; principal; 2022-06-13)
PROC: 30233K1 Transfusion of Nonautologous Frozen Plasma into Peripheral Vein, Percutaneous Approach (ICD-10-PCS; 2022-06-13)
PROC: 30233L1 Transfusion of Nonautologous Fresh Plasma into Peripheral Vein, Percutaneous Approach (ICD-10-PCS; 2022-06-14)
PROC: 30233K1 Transfusion of Nonautologous Frozen Plasma into Peripheral Vein, Percutaneous Approach (ICD-10-PCS; 2022-06-14)
DX: D62 Acute posthemorrhagic anemia (principal); E72.11 Homocystinuria; F05 Delirium due to known physiological condition; D68.51 Activated protein C resistance; K92.1 Melena; R31.0 Gross hematuria; F03.90 Unspecified dementia, unspecified severity, without behavioral disturbance, psychotic disturbance, mood disturbance, and anxiety; M17.0 Bilateral primary osteoarthritis of knee; I25.2 Old myocardial infarction; Z86.711 Personal history of pulmonary embolism; Z87.891 Personal history of nicotine dependence; Z79.01 Long term (current) use of anticoagulants; Z79.899 Other long term (current) drug therapy
CPT/HCPCS: 36415; 36430; 51700; 51702; 51798; 80048; 80053; 81001; 82272; 85014; 85018; 85025; 85027; 85610; 86850; 86900; 86901; 86923; 87086; 94760; 97116; 97161; 97530; 99285-25; A9270; C9113; G0378; J7040; P9016; P9059

== ENCOUNTER 2022-06-27 21:54 | Emergency (ER) | payer MEDICARE ==
[~2022-06-27] VITALS: Ht 172.7 cm; Wt 76.2 kg
[~2022-06-27 21:54] MED LIST changes: +BEVESPI AEROS10.7 G1 INH; +Namenda5 MG PO; +OMEP20ER PO; +PEPCID40 MG PO; +QUETIAPINE FUMA25 MG PO; +Ventolin/Prove6.7 GM INH
== END 2022-06-28 00:14 | disposition home or self-care (01) ==
LOC: ER 21:54
DX: Z46.6 Encounter for fitting and adjustment of urinary device (principal); I10 Essential (primary) hypertension; Z87.891 Personal history of nicotine dependence
CPT/HCPCS: 99282

== ENCOUNTER 2022-07-27 02:11 | Emergency (ER) | payer MEDICARE ==
[~2022-07-27] VITALS: Ht 188 cm; Wt 81.7 kg
[2022-07-27 03:20] LABS: BASOPHILS ABSOLUTE AUTO 0.03 K/mm3 (0.00-0.23); BASOPHILS PERCENT AUTO 1 % (0-2); EOSINOPHILS PERCENT AUTO 5 % (0-6); Hematocrit 35.1 % (37.0-53.0); Hemoglobin 10.7 g/dL (13.5-17.5); IMMATURE GRAN ABSOLUTE AUTO 0.02 K/mm3 (0.00-0.10); IMMATURE GRAN PERCENT AUTO 0 % (0-1); LYMPHOCYTES ABSOLUTE AUTO 1.15 K/mm3 (0.84-5.20); LYMPHOCYTES PERCENT AUTO 19 % (21-46); MONOCYTES ABSOLUTE AUTO 0.64 K/mm3 (0.16-1.47); MONOCYTES PERCENT AUTO 10 % (4-13); Mean Corpuscular HGB 25.8 pg (26.0-34.0); Mean Corpuscular HGB Conc 30.5 g/dL (31.5-36.5); Mean Corpuscular Volume 85 fL (80-100); NEUTROPHILS ABSOLUTE AUTO 4.04 K/mm3 (1.96-9.15); NEUTROPHILS PERCENT AUTO 65 % (41-73); Platelet Count 246 K/mm3 (150-400); RDW Coefficient Variation 15.1 % (11.7-14.2); RDW Standard Deviation 46.9 fL (35.1-46.3); Red Blood Cell Count 4.15 M/mm3 (4.30-5.90); White Blood Cell Count 6.18 K/mm3 (4.00-11.30)
[2022-07-27 03:37] LABS: Bun/Creatinine Ratio 18.6 (12.0-20.0); Calcium, Blood 8.5 mg/dL (8.5-10.1); Creatinine, Blood 0.86 mg/dL (0.60-1.20)
[2022-07-27] MEDS ORDERED: CEPH500 PO (04:43)
== END 2022-07-27 05:00 | disposition home or self-care (01) ==
LOC: ER 02:11
PROVIDERS: Emergency Medicine
DX: I82.612 Acute embolism and thrombosis of superficial veins of left upper extremity (principal); L03.114 Cellulitis of left upper limb; I10 Essential (primary) hypertension; I25.2 Old myocardial infarction; Z79.899 Other long term (current) drug therapy
CPT/HCPCS: 73110; 80048; 85025; 93971

== ENCOUNTER 2023-04-25 15:55 | Emergency (ER) | payer MEDICARE ==
[~2023-04-25] VITALS: Ht 182.9 cm; Wt 73.9 kg
[~2023-04-25 15:55] MED LIST changes: +CEPH500 PO
[2023-04-25 16:41] LABS: BASOPHILS ABSOLUTE AUTO 0.04 K/mm3 (0.00-0.23); BASOPHILS PERCENT AUTO 1 % (0-2); EOSINOPHILS ABSOLUTE AUTO 0.42 K/mm3 (0.00-0.68); EOSINOPHILS PERCENT AUTO 8 % (0-6); Hematocrit 42.7 % (37.0-53.0); Hemoglobin 13.6 g/dL (13.5-17.5); IMMATURE GRAN ABSOLUTE AUTO 0.03 K/mm3 (0.00-0.10); IMMATURE GRAN PERCENT AUTO 1 % (0-1); LYMPHOCYTES ABSOLUTE AUTO 1.47 K/mm3 (0.84-5.20); LYMPHOCYTES PERCENT AUTO 27 % (21-46); MONOCYTES ABSOLUTE AUTO 0.64 K/mm3 (0.16-1.47); MONOCYTES PERCENT AUTO 12 % (4-13); Mean Corpuscular HGB 28.8 pg (26.0-34.0); Mean Corpuscular HGB Conc 31.9 g/dL (31.5-36.5); Mean Corpuscular Volume 90 fL (80-100); Mean Platelet Volume 9.3 fL (9.1-12.4); NEUTROPHILS ABSOLUTE AUTO 2.95 K/mm3 (1.96-9.15); NEUTROPHILS PERCENT AUTO 53 % (41-73); Platelet Count 148 K/mm3 (150-400); RDW Standard Deviation 49.7 fL (35.1-46.3); Red Blood Cell Count 4.73 M/mm3 (4.30-5.90); White Blood Cell Count 5.55 K/mm3 (4.00-11.30)
[2023-04-25 16:43] LABS: Albumin, Blood 3.3 g/dL (3.4-5.0); Albumin/Globulin Ratio 0.8 (0.8-1.8); Bilirubin, Total 0.8 mg/dL (0.1-1.0); Bun/Creatinine Ratio 21.2 (12.0-20.0); Creatinine, Blood 0.99 mg/dL (0.60-1.20); Globulin, Blood 3.9 g/dL (2.2-4.0); Potassium, Blood 4.1 mmol/L (3.5-5.5); Total Protein, Blood 7.2 g/dL (6.4-8.2)
[2023-04-25 17:31] LABS: Source, Urine Voided
[2023-04-25 17:35] LABS: Appearance, Urine Clear (Clear); Bilirubin, Urine Neg (Neg); Blood, Urine 1+ (Neg); Color, Urine Yellow (P-Yellow); Glucose Qualitative, Urine Neg (Neg); Ketones, Urine Neg (Neg); Leukocyte Esterase, Urine Neg (Neg); Nitrite, Urine Neg (Neg); Protein, Urine 1+ (Neg); Specific Gravity, Urine 1.015 (1.003-1.022); Urobilinogen, Urine NORM (Normal)
[2023-04-25 17:54] LABS: Bacteria Few /hpf; Squamous Epithelial Cells Few /hpf (Few); White Blood Cells, Urine 0-2 /hpf (0-5)
[2023-04-25 18:25] VITALS: BP 129/80
== END 2023-04-25 18:30 | disposition home or self-care (01) ==
LOC: ER 15:55
PROVIDERS: Emergency Medicine; Physician Assistant
DX: F03.90 Unspecified dementia, unspecified severity, without behavioral disturbance, psychotic disturbance, mood disturbance, and anxiety (principal); Z87.891 Personal history of nicotine dependence
CPT/HCPCS: 80053; 81001; 85025; 99284

== ENCOUNTER 2023-05-14 15:33 | Emergency (ER) | payer MEDICARE ==
[~2023-05-14] VITALS: Ht 172.7 cm; Wt 72.6 kg
[2023-05-14] MEDS ORDERED: ARIPIPRAZOLE2 M1 PO (16:44)
[2023-05-14 16:49] LABS: PCO2 Venous 53.8 mmHg (38-42); pH Blood Venous 7.36 (7.34-7.37)
[2023-05-14 16:49] LABS: BASOPHILS ABSOLUTE AUTO 0.06 K/mm3 (0.00-0.23); BASOPHILS PERCENT AUTO 1 % (0-2); EOSINOPHILS ABSOLUTE AUTO 0.41 K/mm3 (0.00-0.68); EOSINOPHILS PERCENT AUTO 8 % (0-6); Hematocrit 42.8 % (37.0-53.0); Hemoglobin 14.1 g/dL (13.5-17.5); IMMATURE GRAN ABSOLUTE AUTO 0.03 K/mm3 (0.00-0.10); IMMATURE GRAN PERCENT AUTO 1 % (0-1); LYMPHOCYTES ABSOLUTE AUTO 1.17 K/mm3 (0.84-5.20); LYMPHOCYTES PERCENT AUTO 22 % (21-46); MONOCYTES ABSOLUTE AUTO 0.47 K/mm3 (0.16-1.47); MONOCYTES PERCENT AUTO 9 % (4-13); Mean Corpuscular HGB 28.6 pg (26.0-34.0); Mean Corpuscular HGB Conc 32.9 g/dL (31.5-36.5); Mean Corpuscular Volume 87 fL (80-100); NEUTROPHILS ABSOLUTE AUTO 3.13 K/mm3 (1.96-9.15); NEUTROPHILS PERCENT AUTO 59 % (41-73); RDW Coefficient Variation 14.6 % (11.7-14.2); RDW Standard Deviation 46.5 fL (35.1-46.3); Red Blood Cell Count 4.93 M/mm3 (4.30-5.90); White Blood Cell Count 5.27 K/mm3 (4.00-11.30)
[2023-05-14 16:55] LABS: Magnesium, Blood 2.5 mg/dL (1.6-2.4)
[2023-05-14 16:59] LABS: Thyroid Stimulating Hormone 4.58 uIU/mL (0.360-4.800)
[2023-05-14 17:03] LABS: Albumin, Blood 3.5 g/dL (3.4-5.0); Albumin/Globulin Ratio 0.9 (0.8-1.8); Bun/Creatinine Ratio 16.9 (12.0-20.0); Calcium, Blood 8.5 mg/dL (8.5-10.1); Creatinine, Blood 0.77 mg/dL (0.60-1.20); Globulin, Blood 3.7 g/dL (2.2-4.0); Potassium, Blood 4.4 mmol/L (3.5-5.5); Total Protein, Blood 7.2 g/dL (6.4-8.2)
[2023-05-14 17:11] LABS: International Normalized Ratio 1.09; Prothrombin Time Results 11.4 Sec (9.7-11.5)
[2023-05-14 17:16] LABS: Mean Platelet Volume 9.7 fL (9.1-12.4); Platelet Count 133 K/mm3 (150-400)
[2023-05-14 17:56] VITALS: BP 152/136
== END 2023-05-14 18:00 | disposition home or self-care (01) ==
LOC: ER 15:33
PROVIDERS: Student in an Organized Health Care Education/Training Program
DX: F03.90 Unspecified dementia, unspecified severity, without behavioral disturbance, psychotic disturbance, mood disturbance, and anxiety (principal); R47.81 Slurred speech; T43.595A Adverse effect of other antipsychotics and neuroleptics, initial encounter; I10 Essential (primary) hypertension; I25.10 Atherosclerotic heart disease of native coronary artery without angina pectoris; I25.2 Old myocardial infarction; Z79.899 Other long term (current) drug therapy; Z87.891 Personal history of nicotine dependence
CPT/HCPCS: 70450; 80053; 82803; 82947; 83735; 84443; 85025; 85610; 93005; 93010; 96360; 99285-25; A9270; J7030

== ENCOUNTER → 2023-08-21 | Outpatient (CLI) | payer MEDICARE ==
[~2023-08-21] MED LIST changes: +ARIPIPRAZOLE2 M1 PO
== END ==
LOC: LAB SHORT 22:44 → LAB 22:44
DX: R31.9 Hematuria, unspecified (principal)
CPT/HCPCS: 87086

== ENCOUNTER 2024-04-16 13:19 | Day surgery (SDC) | payer MEDICARE ==
[~2024-04-16 13:19] MED LIST changes: +Balanced Salt Epinephrine Irrigation Solution 500 mL IR SCH; +Lidocaine HCl/Pf 1% 5 ML VIAL XX SCH; +Moxifloxacin HCL 0.5 MG/0.1 ML 0.4MLSYR RIGHTEYE SCH; +NS 0 ML IV ONE; +PHENYLEPHRINE\\TROPICAMIDE\\TETRACAINE OPHTHALMIC DILATING SOLN RIGHTEYE PRN; +Povidone-Iodine 450 DROP/30 ML Solution ONE; +Povidone-Iodine 450 DROP/30 ML Solution RIGHTEYE SCH; +Tetracaine HCl/Pf 0.5% Opth Soln 4 ml ONE
--- NOTE | 2024-04-16 13:43 | NUR ---
04/16/24 1343 Cheyanne Nancy PT HAS DEMENTIA. PT'S REPORTED PT ATE A BANANA AT 11:30 THIS MORNING. RN REPORTED TO DR HERNANDEZ AND ADVISED SURGERY NEEDS TO BE RESCHEDULED DUE TO RISK OF ASPIRATION.
== END 2024-04-16 13:35 | disposition home or self-care (01) ==
LOC: ORSCSDS 13:19
DX: H25.11 Age-related nuclear cataract, right eye (principal); Z53.9 Procedure and treatment not carried out, unspecified reason
CPT/HCPCS: J7040

== ENCOUNTER 2024-04-18 01:50 | Emergency (ER) | payer MEDICARE ==
[~2024-04-18] VITALS: Ht 177.8 cm; Wt 77.1 kg
[~2024-04-18 01:50] MED LIST changes: -Balanced Salt Epinephrine Irrigation Solution 500 mL IR SCH; -Lidocaine HCl/Pf 1% 5 ML VIAL XX SCH; -Moxifloxacin HCL 0.5 MG/0.1 ML 0.4MLSYR RIGHTEYE SCH; -NS 0 ML IV ONE; -PHENYLEPHRINE\\TROPICAMIDE\\TETRACAINE OPHTHALMIC DILATING SOLN RIGHTEYE PRN; -Povidone-Iodine 450 DROP/30 ML Solution ONE; -Povidone-Iodine 450 DROP/30 ML Solution RIGHTEYE SCH; -Tetracaine HCl/Pf 0.5% Opth Soln 4 ml ONE
[2024-04-18 02:00] VITALS: BP 160/86
[2024-04-18] MEDS ORDERED: Diphth,Pertuss(Acell),Tet Vac 0.5 ML VIAL IM ONE (03:55)
[2024-04-22] MEDS ORDERED: Celexa10 MG PO (08:37)
[2024-04-22] MEDS ORDERED: Celexa10 MG (08:37)
[2024-04-22] MEDS ORDERED: MACRODANTIN100 M1 PO (08:41)
[2024-04-22] MEDS ORDERED: QUETIAPINE FUMA50 M8 PO (08:41)
== END 2024-04-18 04:05 | disposition home or self-care (01) ==
LOC: ER 01:50
DX: S61.411A Laceration without foreign body of right hand, initial encounter (principal); I10 Essential (primary) hypertension; I25.2 Old myocardial infarction; Z79.899 Other long term (current) drug therapy; Z87.891 Personal history of nicotine dependence; W22.8XXA Striking against or struck by other objects, initial encounter
CPT/HCPCS: 12001; 90471; 90715; 99282-25

== ENCOUNTER 2024-04-30 13:25 | Day surgery (SDC) | payer MEDICARE ==
[~2024-04-30] VITALS: Ht 172.7 cm; Wt 162.0 kg
[~2024-04-30 13:25] MED LIST changes: +Balanced Salt Epinephrine Irrigation Solution 500 mL IR SCH; +Celexa10 MG; +Celexa10 MG PO; +Lidocaine HCl/Pf 1% 5 ML VIAL XX SCH; +MACRODANTIN100 M1 PO; +Midazolam HCl 1MG / ML 2ML Vial ONE; +Moxifloxacin HCL 0.5 MG/0.1 ML 0.4MLSYR RIGHTEYE SCH; +NS 500 ML IV ONE; +PHENYLEPHRINE\\TROPICAMIDE\\TETRACAINE OPHTHALMIC DILATING SOLN RIGHTEYE PRN; +Povidone-Iodine 450 DROP/30 ML Solution ONE; +Povidone-Iodine 450 DROP/30 ML Solution RIGHTEYE SCH; +QUETIAPINE FUMA50 M8 PO; +Tetracaine HCl/Pf 0.5% Opth Soln 4 ml ONE
[2024-04-30] MEDS ORDERED: FentaNYL Citrate 50 MCG/ML 2 ML Injection ONE (13:51)
[2024-04-30] MEDS ORDERED: NS 500 ML IV ONE ×2 (14:09→14:13)
[2024-04-30] MEDS ORDERED: Ketamine HCl 100 MG / ML 5ML Vial ONE (14:12)
[2024-04-30 15:01] VITALS: BP 91/60
--- NOTE | 2024-04-30 15:11 | NUR ---
04/30/24 1511 Judd Wood PRESENT DURING RECOVERY. SHE WAS EXPLAINED AND VERBALIZED UNDERSTANDING OF DC INSTRUCTIONS
== END 2024-04-30 15:11 | disposition home or self-care (01) ==
LOC: ORSCSDS 13:25
PROVIDERS: Student in an Organized Health Care Education/Training Program
PROC: 08RJ3JZ Replacement of Right Lens with Synthetic Substitute, Percutaneous Approach (ICD-10-PCS; principal; 2024-04-30 14:30)
DX: H25.13 Age-related nuclear cataract, bilateral (principal); R06.02 Shortness of breath; Z99.81 Dependence on supplemental oxygen; K21.9 Gastro-esophageal reflux disease without esophagitis; F03.90 Unspecified dementia, unspecified severity, without behavioral disturbance, psychotic disturbance, mood disturbance, and anxiety; Z79.899 Other long term (current) drug therapy
CPT/HCPCS: 82947; J2250; J3010; J7040; V2632

== ENCOUNTER 2024-05-02 15:45 | Observation (INO) | payer MEDICARE ==
[~2024-05-02] VITALS: Ht 167.6 cm; Wt 65.0 kg
[~2024-05-02 15:45] MED LIST changes: -Balanced Salt Epinephrine Irrigation Solution 500 mL IR SCH; -Lidocaine HCl/Pf 1% 5 ML VIAL XX SCH; -Midazolam HCl 1MG / ML 2ML Vial ONE; -Moxifloxacin HCL 0.5 MG/0.1 ML 0.4MLSYR RIGHTEYE SCH; -NS 500 ML IV ONE; -PHENYLEPHRINE\\TROPICAMIDE\\TETRACAINE OPHTHALMIC DILATING SOLN RIGHTEYE PRN; -Povidone-Iodine 450 DROP/30 ML Solution ONE; -Povidone-Iodine 450 DROP/30 ML Solution RIGHTEYE SCH; -Tetracaine HCl/Pf 0.5% Opth Soln 4 ml ONE
[2024-05-02 16:38] LABS: BASOPHILS ABSOLUTE AUTO 0.04 K/mm3 (0.00-0.23); BASOPHILS PERCENT AUTO 1 % (0-2); EOSINOPHILS ABSOLUTE AUTO 0.27 K/mm3 (0.00-0.68); EOSINOPHILS PERCENT AUTO 4 % (0-6); Hematocrit 42.4 % (37.0-53.0); Hemoglobin 14.2 g/dL (13.5-17.5); IMMATURE GRAN ABSOLUTE AUTO 0.01 K/mm3 (0.00-0.10); IMMATURE GRAN PERCENT AUTO 0 % (0-1); LYMPHOCYTES ABSOLUTE AUTO 1.26 K/mm3 (0.84-5.20); LYMPHOCYTES PERCENT AUTO 21 % (21-46); MONOCYTES ABSOLUTE AUTO 0.66 K/mm3 (0.16-1.47); MONOCYTES PERCENT AUTO 11 % (4-13); Mean Corpuscular HGB 30.2 pg (26.0-34.0); Mean Corpuscular HGB Conc 33.5 g/dL (31.5-36.5); Mean Corpuscular Volume 90 fL (80-100); Mean Platelet Volume 9.2 fL (9.1-12.4); NEUTROPHILS PERCENT AUTO 64 % (41-73); Platelet Count 146 K/mm3 (150-400); RDW Coefficient Variation 14.3 % (11.7-14.2); RDW Standard Deviation 47.7 fL (35.1-46.3); White Blood Cell Count 6.14 K/mm3 (4.00-11.30)
[2024-05-02 17:22] LABS: Ethanol (Alcohol), Blood, Med <3 mg/dL; Free Thyroxine 1.13 ng/dL (0.70-1.60)
[2024-05-02 17:27] LABS: Alanine Aminotransfer (ALT/SGP 17 U/L (12-78); Albumin, Blood 3.3 g/dL (3.4-5.0); Albumin/Globulin Ratio 0.9 (0.8-1.8); Alk Phos 103 U/L (50-136); Anion Gap 13 mmol/L (3-11); Aspartate Aminotrans (AST/SGOT 39 U/L (12-37); Bilirubin, Total 2.1 mg/dL (0.1-1.0); Blood Urea Nitrogen 14 mg/dL (8-24); Bun/Creatinine Ratio 16.4 (12.0-20.0); CO2, Blood 22 mmol/L (21-32); Calcium, Blood 9.1 mg/dL (8.5-10.1); Chloride, Blood 108 mmol/L (98-108); Creatinine, Blood 0.85 mg/dL (0.60-1.20); Globulin, Blood 3.5 g/dL (2.2-4.0); Glomerular Filtration Rate 84 (60-); Glucose, Blood 99 mg/dL (70-99); Potassium, Blood 4.1 mmol/L (3.5-5.5); Sodium, Blood 139 mmol/L (136-145); Total Protein, Blood 6.8 g/dL (6.4-8.2)
[2024-05-02] MEDS ORDERED: LORazepam 2 MG/ML 1ML Injection IV ONE ×2 (17:50→19:00)
[2024-05-02] MEDS ORDERED: Haloperidol Lactate Inj. 5 MG/ML Injection IV ONE (18:10)
[2024-05-02] MEDS ORDERED: Ondansetron HCl 2 MG / ML 2ML Vial IV PRN (18:35)
[2024-05-02] MEDS ORDERED: FentaNYL Citrate 50 MCG/ML 2 ML Injection IV PRN (18:40)
[2024-05-02] MEDS ORDERED: LORazepam 2 MG/ML 1ML Injection IV PRN ×2 (18:40→20:40)
[2024-05-02] MEDS ORDERED: NS 1,000 ML IV ONE (18:45)
[2024-05-02] MEDS ORDERED: FentaNYL Citrate 50 MCG/ML 2 ML Injection IV ONE (19:00)
--- NOTE | 2024-05-02 19:01 | NUR ---
CALLED TO ED BY PROVIDER FOR GOC CONVERSATION. PT'S WORDS ARE MOSTLY NON-SENCICAL AND MUMBLED. , DAMION REPORTS PT HAS NOT BEEN EATING, DRINKING OR TAKING ANY OF HIS MEDICATIONS THE LAST 4 DAYS. ADDITIONALLY REPORTS HIS AGGITATION AND COMBATIVENESS HAS GREATLY INCREASED. HE HAS CHRONIC PAIN AT BASELINE, TAKES 5 MG OXYCODONE 3 TIMES DAILY. SEROQUEL AT NIGHT. AGGITATION LIKELY INCREASED D/T WITHDRAWL OF CHRONIC MEDICATIONS AND PAIN. HE IS NOT ABLE TO LAY STILL. STATED HIS PROVIDER GAVE HER PAPERWORK TO START SETTING UP HOSPICE. SHE HAS BEEN OVERWHELMED AND HAS NOT STARTED THE PROCESS. SHE WOULD LIKE HIM TO BE COMFORTABLE WITH FOCUS ON QUALITY OF LIFE. GOAL: D/C HOME WITH HOSPICE WHEN SYMPTOMS ARE MANAGED. DTR'S LIVE AT HOME AND ARE ABLE TO HELP WITH CARES.
[2024-05-02] MEDS ORDERED: LORazepam 2 MG/ML 1ML Injection ONE (19:26)
[2024-05-02] MEDS ORDERED: Haloperidol Lactate Inj. 5 MG/ML Injection IV PRN (19:30)
[2024-05-02] MEDS ORDERED: QUEtiapine Fumarate 100 MG Tab PO SCH (21:00)
[2024-05-02] MEDS ORDERED: Nystatin 100,000 Unit/ML Susp 5 ML UDC PO SCH (21:00)
[2024-05-02] MEDS ORDERED: OxyCODONE HCL 5 MG TAB PO SCH (21:00)
[2024-05-02 21:18] VITALS: BP 137/91
--- NOTE | 2024-05-02 22:35 | NUR ---
PATIENT IS A NEW ADMIT FROM THE ED. FOUR PERSON TRANSFER FROM [facility] TO BED. ALERT TO NONE, EYES CLOSED, AND BEDREST. ED RN KIKO REPORTS PATIENT KICKING, BITING, RESISTING CARE, AND AGRESSIVE. SPOUSE PRESENT ON ADMIT AND PATIENT PULLING AT GOWN, ATTENDS, AND PIV. SWING AT STAFF. PATIENT PLACED IN WRIST RESTAINTS PER HOSPITALIST OBED ESCALANTE AND SPOUSE APPROVES RESTRAINTS. SHE ALSO REPORTS HE WILL TRY TO GET OUT OF BED AND YELLS/SCREAMS, VISUAL HALLUCINATIONS, AND SPITS. ON ROOM AIR. SCATTER BRUISING T/O. SPOUSE REPORTS SHE CAN NO LONGER CARE FOR HIM AND LOOKING INTO HOSPICE. WCTM.
[2024-05-03 02:40] VITALS: BP 134/90
--- NOTE | 2024-05-03 04:22 | NUR ---
SHIFT SUMMARY PATIENT HAD NO ACUTE CHANGES. AXOX ZERO AND BEDREST. NON-VERBAL WITH EYES CLOSED AND MOANING. PIV INTACT. BILATERAL SOFT WRIST RESTRAINTS PER ORDER. IV HALDOL 2.5 MG GIVEN X ONE FOR AGITATION. PATIENT SLEPT AFTER HALDOL GIVEN. NO S/SX OF PAIN, SOB, AND N/V. VSS/AFEBRILE. SPOUSE PRESENT FOR ADMIT AND REPORTS WILL BE BACK IN TODAY SETTING UP HOSPICE. CALL LIGHT IN REACH. BED IN LOWEST POSITION AND ALARM ACTIVATED. WILL CONTINUE TO MONITOR UNTIL DAY SHIFT NURSE ASSUMES CARE.
[2024-05-03 07:46] VITALS: BP 146/85
[2024-05-03] MEDS ORDERED: Enoxaparin 40 MG/0.4 ML SYR SC SCH (09:00)
[2024-05-03] MEDS ORDERED: Ziprasidone Mesylate 20 MG / Vial IM ONE (10:00)
[2024-05-03] MEDS ORDERED: Promethazine HCl 25 MG Supp PR PRN (10:15)
[2024-05-03] MEDS ORDERED: Morphine Sulfate 20 MG/1ML 1 ML Oral Syringe SL PRN (10:15)
[2024-05-03] MEDS ORDERED: LORazepam 1 MG Tab PO PRN (10:15)
--- NOTE | 2024-05-03 10:16 | NUR ---
SPOKE WITH PT'S , SHE WOULD LIKE TO TAKE PATIENT HOME WITH HOSPICE. THEY REQUEST WE BEGAN COMFORT CARE NOW, PATIENT IS AGITATED. DR. DUBOSE AGREES WITH THIS. ORDERS PLACED.
[2024-05-03] MEDS ORDERED: OLANZapine ODT 5 MG Tab MM PRN (16:20)
--- NOTE | 2024-05-03 18:08 | NUR ---
SHIFT SUMMARY MR MIDDLETON HAS BEEN NON VERBAL WITH WORDS TODAY, SOME MOANING, VERY STRONG AND HAS BEEN RESTLESS, SWINGING ARMS, THROWING OFF SHEETS AT TIMES TODAY. HE WAS IN SOFT WRIST RESTRAINTS UNTIL HE SETTLED AT NOON. FAMILY HAS BEEN WITH HIM ALL AFTERNOON. HE CALMED FOR ABOUT 2.5HRS THEN BECAME RESTLESS AGAIN, FAMILY WERE HOLDING HIS ARMS AND LEGS TO PREVENT HIM FORM FALLING FROM BED AND FROM HURTING HIMSELF/OTHERS. S/N DR DUBOSE, S/B PALLIATIVE CARE. CARE SWITCHED OVER TO COMFORT CARE. PT MEDICATED FOR COMFORT AND AGGITATION IN COLLABORATION WITH HIS FAMILY. HE CURRENTLY LOOKS MORE SETTLED. UNABLE TO TAKE ANY PO FLUIDS/FOOD TODAY. FAMILY ARE PLANNING TO TAKE HIM HOME AND CARE FOR HIM AT HOME, THERE IS A LARGE FAMILY FO SUPPORT, [place] ALSO CONCERNS VOICED OVER HOW TO COPE IF HE BECOMES THIS AGGITATED AT HOME. BED LOW, CALL LIGHT IN REACH, BED ALARM ON.
--- NOTE | 2024-05-04 06:22 | NUR ---
SHIFT SUMMARY NOC PT A/O X 0. ON COMFORT CARE MEASURES OF YESTERDAY. PT HAD EPISODE OF AGITATION AND LEGS ATTEMPTED TO EXIT BED, ATIVAN AND HALDOL GIVEN AND AGITATION SUBSIDED. NO PO INTAKE. PT WAS INCONTINENT OF URINE X 1. PT HAS NON CLINICAL SITTER IN PLACE TO INFORM NURSING STAFF WHEN PT IS ATTEMPTING OOB UNSAFELY. PT POSSIBLE DISCHARGE TODAY WITH [facility]. PT CURRENTLY RESTING WITH DIRECT OBSERVATION, BED IN LOWEST POSITION, AND CALL LIGHT WITHIN REACH.
[2024-05-04] MEDS ORDERED: MORP20L SL (10:53)
[2024-05-04] MEDS ORDERED: Ativan1 MG PO (10:54)
[2024-05-04] MEDS ORDERED: ZYPREXA513 PO (10:55)
--- NOTE | 2024-05-04 12:37 | NUR ---
ASSESSED PATIENT THIS MORNING. HE WAS ASLEEP, RESPIRATIONS WERE EVEN AND UNLABORED. HE APPEARED COMFORTABLE. BEGAN TO AWAKEN I WAS ASSESSING PATIENT. TRANSPORT ARRIVE AT 1230 TO TAKE PATIENT HOME
--- NOTE | 2024-05-04 12:56 | NUR ---
DISCHARGE NOTE PT DISCHARGE HOME WITH HOSPICE, DISCHARGE PACKET PROVIDED TO TRANSPORT CREW. IV REMOVED. MEDICATED PRIOR TO DISCHARGE. POLST PROVIDED TO TRANSPORT. PERSONAL BELONGINGS RETURNED.
== END 2024-05-04 12:50 | disposition hospice, home (50) ==
LOC: ER 15:45 → MEDS 15:46
PROVIDERS: Emergency Medicine; ADMIT Internal Medicine
DX: I63.9 Cerebral infarction, unspecified (principal); G30.9 Alzheimer's disease, unspecified; F02.80 Dementia in other diseases classified elsewhere, unspecified severity, without behavioral disturbance, psychotic disturbance, mood disturbance, and anxiety; I26.99 Other pulmonary embolism without acute cor pulmonale; I10 Essential (primary) hypertension; I25.2 Old myocardial infarction; R62.7 Adult failure to thrive; Z51.5 Encounter for palliative care; Z66 Do not resuscitate; Z79.899 Other long term (current) drug therapy
CPT/HCPCS: 70450; 71045; 80053; 80320; 84439; 84443; 85025; 93005; 93010; 96372; 96374; 96375; 96376; 99285-25; A9270; G0378; J1630; J1650; J2060; J3010; J3486